=== PATIENT | female | born 2000 | race Caucasian/White ===

== ENCOUNTER 2021-01-31 12:19 | Observation (INO) ==
--- NOTE | 2021-01-31 12:46 | Emergency Department Note ---
Impression & Plan Pneumothorax ED Provider Note CHIEF COMPLAINT: Chest pain HISTORY OF PRESENTING ILLNESS: This is a 20-year-old female who presents to the emergency department by private vehicle with complaint of left-sided chest pain that has been constant for the past 2 days. She states she first started feeling pain in her left shoulder blade area after getting out of her car. She states she thought she pulled a muscle, but the pain has been persistently worsening. The pain is now primarily in the left front of her chest and wraps around the side into her shoulder blade area, has been constant discomfort that she describes like a tightness and states it feels like her lungs are "sliding around inside", she has a sharp stabbing pain with taking a deep breath and the pain is also worse when lying flat, also worse with twisting movements and exertion, better with sitting up and rest, she currently rates the pain 3/10. She has not tried anything for the pain. She denies any injuries. She notes feeling slightly short of breath when she is in pain, but she feels that is more due to feeling like it hurts to take a breath, not that she cannot get her breath. She denies any fevers or chills. She denies any cough or URI symptoms. She denies any concerns for COVID-19 and states she has not been around anybody for several weeks. REVIEW OF SYSTEMS: A complete 10 point review of systems was reviewed with the patient with pertinent positives and negatives as [facility] All else were negative. PAST MEDICAL HISTORY: Asthma SOCIAL HISTORY: Lives at home, she smokes marijuana and vapes daily ALLERGIES: No known allergies PHYSICAL EXAM: CONSTITUTIONAL: Pleasant and cooperative. Nontoxic-appearing and in no acute distress. Well appearing and well nourished. HEENT: Normocephalic, atraumatic. Pharynx normal. NECK: Supple, full active range of motion without discomfort. No JVD. RESPIRATORY: Clear to auscultation bilaterally with no wheezing, crackles, rhon chi or stridor. Equal expansion bilaterally. CARDIOVASCULAR: Regular rate and rhythm with no murmurs, rubs or gallops. Normal peripheral perfusion, 2+ distal pulses in all 4 extremities. No pitting edema. GASTROINTESTINAL: Soft, nontender, nondistended. No palpable masses or HSM. Bowel sounds present in all quadrants. MUSCULOSKELETAL: Full range of motion of all joints without discomfort. INTEGUMENTARY: No rash or other significant dermatologic conditions noted. NEUROLOGIC: Alert and oriented X 4 with normal affect. Normal strength and sensation in all 4 extremities. Normal speech. Normal gait observed. ED COURSE AND MEDICAL DECISION MAKING: CC: Patient presenting with complaint of chest pain DIFFERENTIAL DIAGNOSIS: Includes, but not limited to acute coronary syndrome, pulmonary embolism, aortic dissection, pneumothorax, pericarditis, myocarditis, anxiety, musculoskeletal pain, GERD, costochondritis, pneumonia, among others. INTERPRETATION OF LABS: No leukocytosis, no anemia, normal platelets, no significant electrolyte abnormalities, normal renal function, normal liver en zymes and lipase. Serum negative. Troponin undetectable. D-dimer normal. IMAGING: XR chest 1V portable CLINICAL HISTORY: Chest Pain COMPARISON STUDY: No previous studies for comparison. FINDINGS: Lung volumes are normal. There is a small pneumothorax with superior pleural separation of 2.5 cm. There is no right pneumothorax. Lungs are clear. Cardiac size is normal. Mediastinal contours are normal. IMPRESSION: Small left pneumothorax with superior pleural separation of 2.5 cm. Findings discussed with Irena Paulson at time of dictation. EKG: Shows normal sinus rhythm with a rate of 81 bpm, normal intervals, no ST or T wave abnormalities, no ectopy by my interpretation. No previous EKGs available for comparison. MEDICATION RECONCILIATION: I attest that I have personally reviewed the patient's current medication list. INITIAL VITAL SIGNS REVIEW: I reviewed the patient's initial vital signs and interpret them as follows: T: Afebrile; BP: Normotensive; HR: Mildly tachycardic; RR: Within normal limits; Pulse Ox: Within normal limits on room air. MDM SUMMARY: Patient was evaluated at bedside, history and physical exam performed. Patient is alert and oriented, in no acute distress, resting calmly in the stretcher. Breathing is nonlabored, she is not tachypneic or hypoxic. Lung sounds are clear, slightly diminished in the bases. Normal heart sounds. No edema. Cardiac monitoring: An order was placed for continuous cardiac monitoring. The monitor shows a rate of 93 bpm with normal sinus rhythm. Orders were placed at bedside for labs including troponin, D-dimer, serum , EKG, and chest x-ray to evaluate for chest pain. Patient discussed with Dr. Salguero, who agrees with my assessment, plan, and disposition. Labs and imaging reviewed as above, labs are fairly unremarkable. Troponin undetectable. D-dimer normal. Chest x-ray reviewed as above, notable for a small left pneumothorax. I spoke on the phone with Dr. Watson, laundry clerk, who agreed to be involved in the patient's care. He recommended placing the patient on nonrebreather oxygen and recommended that she be admitted to the hospitalist service for observation. He requested a repeat chest x-ray in 4 hours as well as tomorrow morning. I spoke on the phone with Dr. Duran, [facility] Hospitalist, who agrees to evaluate the patient for the admission. Patient reassessed multiple times throughout ED stay, she has remained hemodynamically stable and not hypoxic. The patient was updated on all results and plan for admission/observation, all questions were answered to the best of my ability and the patient was agreeable to the plan. The patient was stable at time of admission. The chart was completed utilizing [employer] Speech voice recognition software. G rammatical errors, random word insertions, pronoun errors, and incomplete sentences are an occasional consequence of this system due to software limitations, ambient noise, and hardware issues. Any formal questions or concerns about the content, text, or information contained within the body of this dictation should be directly addressed to the nurse practitioner for clarification. Past Med/Surg History Social History Smoking Status: Current every day smoker Tobacco Type: E-cigarettes / Vaping Preferred Language: Omani Feels Safe at Home: Yes Allergies Allergies Allergy/AdvReac Type Severity Reaction Status Date / Time No Known Allergies Allergy Verified 01/31/21 14:54 Home Meds Home Medications Medication Instructions Recorded Confirmed albuterol sulfate 2 puff INHALATION DIRECTED PRN 01/31/21 01/31/21 Results & Data (ED) Vital Signs Vital Signs - 24 hr 01/31/21 12:23 01/31/21 12:30 01/31/21 14:22 Temperature 36.5 C Temperature Source Temporal Artery Scan Pulse Rate 107 H Pulse Rate [Apical] 76 Respiratory Rate 16 20 Respiratory Effort / Characteristics Non-Labored Spontaneous Non-Labored Respiratory Depth Normal Blood Pressure 105/70 Blood Pressure [Right Arm] 103/65 Blood Pressure Mean 81 Blood Pressure Mean [Right Arm] 77 Blood Pressure Position Sitting Pulse Oximetry 99 100 Oxygen Delivery Method Room Air Non-rebreather Oxygen Flow Rate 6 Sepsis Recent Fever Within 48 Hours No Sepsis New/Unexplained Change in Mental Status No Sepsis Action Taken by Nursing No Action Required 01/31/21 15:00 01/31/21 16:00 01/31/21 17:00 Temperature Temperature Source Pulse Rate Pulse Rate [Apical] 78 79 88 Respiratory Rate 16 16 16 Respiratory Effort / Characteristics Respiratory Depth Blood Pressure Blood Pressure [Right Arm] 107/68 104/67 101/63 Blood Pressure Mean Blood Pressure Mean [Right Arm] 81 79 75 Blood Pressure Position Pulse Oximetry 100 100 99 Oxygen Delivery Method Non-rebreather Non-rebreather Room Air Oxygen Flow Rate 8 8 Sepsis Recent Fever Within 48 Hours Sepsis New/Unexplained Change in Mental Status Sepsis Action Taken by Nursing Laboratory Data Result diagrams: 01/31/21 12:56 01/31/21 12:56 Lab Results 01/31/21 01/31/21 01/31/21 Range/Units 12:56 12:56 12:56 WBC 7.00 (4.8-10.8) K/uL RBC 4.03 L (4.2-5.4) M/uL Hgb 13.7 (12.0-16.0) g/dL Hct 38.4 (37-47) % MCV 95.3 (80-100) fL MCH 34.0 (25-34) pg MCHC 35.7 (32-36) g/dL RDW Std Deviation 43.3 (36.4-46.3) fL RDW Coeff of Juan 12.4 (11.5-14.5) % Plt Count 186 (130-400) K/uL MPV 11.1 H (7.4-10.4) fL Immature Gran % (Auto) 0.0 % Neut % (Auto) 65.8 % Lymph % (Auto) 25.6 % Towns % (Auto) 5.6 % Eos % (Auto) 2.7 % Baso % (Auto) 0.3 % Neut # (Auto) 4.61 (1.4-6.5) K/uL Lymph # (Auto) 1.79 (1.2-3.4) K/uL Towns # (Auto) 0.39 (0.11-0.59) K/uL Eos # (Auto) 0.19 (0-0.5) K/uL Baso # (Auto) 0.02 (0-0.2) K/uL Immature Gran # (Auto) 0.00 (0.00-0.02) K/uL D-Dimer Cancelled Sodium (136-145) mmol/L Potassium (3.5-5.1) mmol/L Chloride (98-107) mmol/L Carbon Dioxide (21-32) mmol/L Anion Gap (3-11) BUN (7-18) mg/dl Creatinine (0.6-1.2) mg/dl Est Cr Clr Drug Dosing ml/min Est GFR ( Amer) Est GFR (Non-Af Amer) BUN/Creatinine Ratio (10-20) Glucose (70-99) mg/dl Calcium (8.5-10.1) mg/dl Total Bilirubin (0.2-1) mg/dl AST (15-37) U/L ALT (12-78) U/L Alkaline Phosphatase (45-117) U/L Troponin I (0-0.045) ng/ml Total Protein (6.4-8.2) gm/dl Albumin (3.4-5.0) gm/dl Globulin (2.5-4.0) gm/dl Albumin/Globulin Ratio (0.9-2) Lipase (73-393) U/L HCG, Qual Negative (Negative) Specimen Hemolysis COVID-19 Eval Order SARS-CoV-2, RNA, NAAT (NEGATIVE) 01/31/21 01/31/21 01/31/21 Range/Units 12:56 13:53 15:55 WBC (4.8-10.8) K/uL RBC (4.2-5.4) M/uL Hgb (12.0-16.0) g/dL Hct (37-47) % MCV (80-100) fL MCH (25-34) pg MCHC (32-36) g/dL RDW Std Deviation (36.4-46.3) fL RDW Coeff of Juan (11.5-14.5) % Plt Count (130-400) K/uL MPV (7.4-10.4) fL Immature Gran % (Auto) % Neut % (Auto) % Lymph % (Auto) % Towns % (Auto) % Eos % (Auto) % Baso % (Auto) % Neut # (Auto) (1.4-6.5) K/uL Lymph # (Auto) (1.2-3.4) K/uL Towns # (Auto) (0.11-0.59) K/uL Eos # (Auto) (0-0.5) K/uL Baso # (Auto) (0-0.2) K/uL Immature Gran # (Auto) (0.00-0.02) K/uL D-Dimer 380 Sodium 139 (136-145) mmol/L Potassium 3.8 (3.5-5.1) mmol/L Chloride 107 (98-107) mmol/L Carbon Dioxide 26 (21-32) mmol/L Anion Gap 6.0 (3-11) BUN 9 (7-18) mg/dl Creatinine 0.76 (0.6-1.2) mg/dl Est Cr Clr Drug Dosing 85.5 ml/min Est GFR ( Amer) 131.8 Est GFR (Non-Af Amer) 113.7 BUN/Creatinine Ratio 12.2 (10-20) Glucose 90 (70-99) mg/dl Calcium 9.3 (8.5-10.1) mg/dl Total Bilirubin 0.7 (0.2-1) mg/dl AST 16 (15-37) U/L ALT 23 (12-78) U/L Alkaline Phosphatase 55 (45-117) U/L Troponin I < 0.015 (0-0.045) ng/ml Total Protein 6.7 (6.4-8.2) gm/dl Albumin 3.7 (3.4-5.0) gm/dl Globulin 3.0 (2.5-4.0) gm/dl Albumin/Globulin Ratio 1.2 (0.9-2) Lipase 92 (73-393) U/L HCG, Qual (Negative) Specimen Hemolysis COVID-19 Eval [facility] SARS-CoV-2, RNA, NAAT (NEGATIVE) 01/31/21 Range/Units 15:55 WBC (4.8-10.8) K/uL RBC (4.2-5.4) M/uL Hgb (12.0-16.0) g/dL Hct (37-47) % MCV (80-100) fL MCH (25-34) pg MCHC (32-36) g/dL RDW Std Deviation (36.4-46.3) fL RDW Coeff of Juan (11.5-14.5) % Plt Count (130-400) K/uL MPV (7.4-10.4) fL Immature Gran % (Auto) % Neut % (Auto) % Lymph % (Auto) % Towns % (Auto) % Eos % (Auto) % Baso % (Auto) % Neut # (Auto) (1.4-6.5) K/uL Lymph # (Auto) (1.2-3.4) K/uL Towns # (Auto) (0.11-0.59) K/uL Eos # (Auto) (0-0.5) K/uL Baso # (Auto) (0-0.2) K/uL Immature Gran # (Auto) (0.00-0.02) K/uL D-Dimer Sodium (136-145) mmol/L Potassium (3.5-5.1) mmol/L Chloride (98-107) mmol/L Carbon Dioxide (21-32) mmol/L Anion Gap (3-11) BUN (7-18) mg/dl Creatinine (0.6-1.2) mg/dl Est Cr Clr Drug Dosing ml/min Est GFR ( Amer) Est GFR (Non-Af Amer) BUN/Creatinine Ratio (10-20) Glucose (70-99) mg/dl Calcium (8.5-10.1) mg/dl Total Bilirubin (0.2-1) mg/dl AST (15-37) U/L ALT (12-78) U/L Alkaline Phosphatase (45-117) U/L Troponin I (0-0.045) ng/ml Total Protein (6.4-8.2) gm/dl Albumin (3.4-5.0) gm/dl Globulin (2.5-4.0) gm/dl Albumin/Globulin Ratio (0.9-2) Lipase (73-393) U/L HCG, Qual (Negative) Specimen Hemolysis COVID-19 Eval Order SARS-CoV-2, RNA, NAAT NEGATIVE (NEGATIVE) Discharge Plan Visit Data Chief Complaint: Chest Pain Stated Complaint: SHARP PAIN - LT SIDE OF CHEST ED Provider: Manuel Salguero ED Midlevel Provider: Galuska,Irena B. Discharge Problem: Pneumothorax Patient Disposition: Admitted As Inpatient Condition: Good Discharge Instructions Interventions: ED Discharge Assessment Last Done: 01/31/21 17:05 Forms Stand Alone Forms: [employer] Prescriptions Prescriptions: No Action albuterol sulfate 90 mcg/actuation Hfa Aerosol Inhaler 2 puff INHALATION DIRECTED PRN (Reason: Shortness Of Breath Or Wheezing) RF: 0 Referrals [facility]: [facility] [Primary Care Provider[facility] - Discharge Problem: Pneumothorax Qualifiers: Pneumothorax type: spontaneous, primary Qualified Code(s): J93.11 - Primary spontaneous pneumothorax
[2021-01-31 13:14] LABS: Basophils # (auto) 0.02 K/uL (0-0.2); Basophils % (auto) 0.3 %; Eosinophils # (auto) 0.19 K/uL (0-0.5); Eosinophils % (auto) 2.7 %; Hematocrit (blood only) 38.4 % (37-47); Hemoglobin 13.7 g/dL (12.0-16.0); Lymphocytes # (auto) 1.79 K/uL (1.2-3.4); Lymphocytes % (auto) 25.6 %; Mean Corpuscular Hgb Conc 35.7 g/dL (32-36); Mean Corpuscular Volume 95.3 fL (80-100); Mean Platelet Volume 11.1 fL (7.4-10.4); Monocytes # (auto) 0.39 K/uL (0.11-0.59); Monocytes % (auto) 5.6 %; Neutrophils # (auto) 4.61 K/uL (1.4-6.5); Neutrophils % (auto) 65.8 %; Platelet Count 186 K/uL (130-400); RDW Coefficient of Variation 12.4 % (11.5-14.5); RDW Standard Deviation 43.3 fL (36.4-46.3); Red Blood Count 4.03 M/uL (4.2-5.4)
--- NOTE | 2021-01-31 13:18 | XRay Report ---
XR chest 1V portable CLINICAL HISTORY: Chest Pain COMPARISON STUDY: No previous studies for comparison. FINDINGS: Lung volumes are normal. There is a small pneumothorax with superior pleural separation of 2.5 cm. There is no right pneumothorax. Lungs are clear. Cardiac size is normal. Mediastinal contours are normal. IMPRESSION: Small left pneumothorax with superior pleural separation of 2.5 cm. Findings discussed w tigist Paulson at time of dictation. ACT 112: Negative or not required by law. Electronically signed by: Morris Balderas M.D. 01/31/2021 1:17 PM
[2021-01-31 13:35] LABS: Pregnancy Test, Serum Negative (Negative)
[2021-01-31 13:37] LABS: Alanine Aminotransferase 23 U/L (12-78); Albumin Level 3.7 gm/dl (3.4-5.0); Aspartate Aminotransferase 16 U/L (15-37); BUN Creatinine Ratio 12.2 (10-20); Blood Urea Nitrogen 9 mg/dl (7-18); Calcium 9.3 mg/dl (8.5-10.1); Carbon Dioxide 26 mmol/L (21-32); Chloride 107 mmol/L (98-107); Creatinine Clr Calc Pharmacy 85.5 ml/min; Est GFR (African American) 131.8; Est GFR (Non-African American) 113.7; Glucose 90 mg/dl (70-99); Lipase 92 U/L (73-393); Potassium 3.8 mmol/L (3.5-5.1); Sodium 139 mmol/L (136-145)
[2021-01-31 13:45] LABS: Albumin Globulin Ratio 1.2 (0.9-2); Alkaline Phosphatase 55 U/L (45-117); Bilirubin,Total 0.7 mg/dl (0.2-1); Total Protein 6.7 gm/dl (6.4-8.2); Troponin I < 0.015 ng/ml (0-0.045)
[2021-01-31 14:31] LABS: D Dimer 380 ug/L FEU (0-500)
--- NOTE | 2021-01-31 15:31 | History & Physical Report ---
Date of Service January 31, 2021 Assessment & Plan (1) Pneumothorax: Continue on non-rebreather @ 10 LPM CXR @ 6pm then in AM Consult pulmonology (2) Engages in vaping: Encouraged to discontinue use of this. Admission and Anticipated Discharge Date Admission Date: 01/31/2021 History of Present Illness Primary Care Provider: [facility] Cayla Villagomez is a 20-year-old female who presents to the ER with 2 days of left- sided chest pain. She reports sudden onset chest pain while driving after shivering with possible back muscle spasms. Severity 2/10, worse on deep inspiration, movement. She describes the feeling of a liquid sensation sloshing around when she bends over. No fevers or chills or recent URI symptoms. No history of COVID-19 pneumonia. She does note 3 years ago having a similar feeling but never had it checked out medically. On that occasion her pain resolved in a few days without intervention. She denies any extensive exercise regimen, anorexia or bulimia. She does admit to smoking marijuana and e-cigarettes for the last 3 years. She notes more persistent use of the cigarettes over the last 2 years. No family history of any lung disorders. She does have a personal history of asthma as a child but now rarely uses her albuterol inhaler and is on no maintenance inhalers. In the ER chest x-ray showed a small left pneumothorax with superior pleural separation of 2.5 cm. She was referred to medicine for admission and ongoing management of this. Allergies Allergy/AdvReac Type Severity Reaction Status Date / Time No Known Allergies Allergy Verified 01/31/21 14:54 Home Medications Medication Instructions Recorded Confirmed Type albuterol sulfate 2 puff INHALATION DIRECTED PRN 01/31/21 01/31/21 History Past Med/Surg History Medical History (Updated 02/01/21 @ 10:03 by Cruz Watson MD) Chest pain Engages in vaping Marijuana use, continuous Spontaneous pneumothorax Social History Smoking Status: Current every day smoker Tobacco Type: E-cigarettes / Vaping Do You Dip or Chew Tobacco: No; Hx Alcohol Use: No Hx Substance Use: Yes Last Used Substance: Days (ago) Last Used Substance Other:: last night Preferred Language: Salvadorean Communication Ability: Effective Beliefs That Will Affect Care: None Current Living Situation: Other Current Living Situation Comment: 2 roomates Feels Safe at Home: Yes Safety Concerns: Feels Safe At This Time Assistive Devices: None Review of Systems Review of Systems: All systems reviewed & are unremarkable except as noted in HPI & below Physical Exam Constitutional: WD/WN, vitals as above Eyes: PERRL, conjunctivae normal, anicteric sclerae ENMT: external ear and nose normal, oropharynx normal Respiratory: normal respiratory effort, lungs clear to auscultation (Good air entry to apex) Cardiovascular: RRR, no murmur, no edema Musculoskeletal: no cyanosis or clubbing, extremities motor strength 5/5 Skin: no rashes, warm and dry (No surgical emphysema) Neurologic: moves all extremities and awake; not confused Psychiatric: A+Ox3, euthymic affect Results & Data Results & Data ([facility]) Vital Signs (Past 12 Hours) Vital Signs Temp Pulse Pulse Resp BP BP Pulse Ox 01/31/21 14:22 76 20 103/65 100 01/31/21 12:23 36.5 C 107 H 16 105/70 99 Diagnostic Findings XR chest 1V portable IMPRESSION: Small left pneumothorax with superior pleural separation of 2.5 cm. Findings discussed with Irena Paulson at time of dictation. Medications Administered ER medications given: None Code Status & VTE Plan Code Status Full VTE Prophylaxis Plan VTE Prophylaxis will be ordered: No PG Care Time/CCT Total # of Minutes Spent Total Time Spent with Patient: Total time spent is greater than 50% in coordination of care (as documented) at patient's floor/unit and/or counseling patient: Coding Level of Care Code 89003 OBS Care - Level 2 Diagnoses Pneumothorax J93.11 Pneumothorax type: spontaneous, primary Engages in vaping Z72.89 (1) Pneumothorax Pneumothorax type: spontaneous, primary Qualified Code(s): J93.11 - Primary spontaneous pneumothorax
[2021-01-31] MEDS ORDERED: POLYETHYLENE (MIRALAX) 17 GM PACK PO PRN (17:36)
[2021-01-31] MEDS ORDERED: ONDANSETRON INJ 2 MG/ML 2 ML VIAL IV PRN (17:36)
[2021-01-31] MEDS ORDERED: ACETAMINOPHEN 325 MG TAB PO PRN (17:36)
--- NOTE | 2021-01-31 18:12 | XRay Report ---
XR chest 1V portable CLINICAL HISTORY: Left pneumothorax COMPARISON STUDY: Chest radiograph January 31, 2021 at 12:58 PM. FINDINGS: There has been slight decrease in size of a small left apical pneumothorax. Superior pleura l separation measures 1.8 cm. It measured 2.5 cm on chest radiograph performed earlier today. There i s no right pneumothorax. Lungs are clear. Cardiac size is normal. Mediastinal contours are normal. Th ere is no consolidation. IMPRESSION: Slight decrease in size of a small left apical pneumothorax. ACT 112: Negative or not required by law. Electronically signed by: Morris Balderas M.D. 01/31/2021 6:11 PM
--- NOTE | 2021-02-01 06:27 | Electrocardiogram Report ---
Test Reason : Blood Pressure : / mmHG Vent. Rate : 081 BPM Atrial Rate : 081 BPM P-R Int : 140 ms QRS Dur : 080 ms QT Int : 360 ms P-R-T Axes : 060 068 078 degrees QTc Int : 418 ms Normal sinus rhythm with sinus arrhythmia Normal ECG No previous ECGs available Confirmed by Andrey Griggs ([id number]) on 02/01/2021 6:26:57 AM Referred By: ER Confirmed By:Andrey Griggs
--- NOTE | 2021-02-01 08:05 | XRay Report ---
XR chest 1V portable HISTORY: Follow-up Left pneumothorax COMPARISON: Chest 01/31/2021. FINDINGS: Slight increase in size in the small left apical pneumothorax which demonstrates a maximal pleural gap of 2 cm. This previously measured 1.8 cm. The lungs are clear. The heart is normal in siz e. No pleural effusions. IMPRESSION: Slight increase in size in the small left apical pneumothorax. ACT 112: Negative or not required by law. Electronically signed by: Sushant Traylor M.D. 02/01/2021 8:04 AM
--- NOTE | 2021-02-01 10:01 | Pulmonary Consultation ---
Date of Consultation February 01, 2021 Assessment & Plan (1) Spontaneous pneumothorax: 20-year-old female with a past history of marijuana use and vaping presented to the hospital due to a spontaneous left-sided pneumothorax. Spontaneous pneumothorax: We will follow up with her in the clinic in 1 week. No intervention required at this time as she is hemodynamically stable. She is also stable from a respiratory standpoint. Recommend discharge today. Advised her to avoid lifting anything over 5 pounds for the next 2 weeks. Avoid air travel and scuba diving until follow-up imaging and further direction. Notably, she was concerned that 3 years ago she may have had a pneumothorax and was unaware as she did not go to the doctor. If the pneumothorax resolves in 1 week, will obtain a chest CT to evaluate for blebs or emphysema. If these are seen, would recommend thoracic surgery referral as an outpatient. Vaping and marijuana use: Advised strict cessation of these activities as they could potentially lead to further pneumothorax and lung disease. Thank you for the consultation. Please call with questions. (2) Chest pain: Chest pain type: chest pain on breathing Qualified Code(s): R07.1 - Chest pain on breathing (3) Marijuana use, continuous: (4) Engages in vaping: History of Present Illness Reason for Consultation: Spontaneous pneumothorax Attending Physician: Micah Paul MD History of Present Illness 20-year-old female with no significant past medical history who presented to the ER yesterday afternoon for left-sided chest pain that has been occurring for the last 2 days. She notes that she has pain on deep inspiration. There is a tightness in her chest and she feels like something is sliding around. She denies any significant shortness of breath at this time. She feels that her tightness in chest pain has improved. She notes that she had somewhat of a similar pain approximately 3 years ago and was wondering if she had a pneumothorax at that time. She denies ever going to the ER or the doctor to evaluate the chest pain at that time. It had spontaneously improved. At this time, she denies any trauma to her chest. She does note that she smokes marijuana almost on a daily basis and is also vaping on a daily basis throughout the day. She notes that she started vaping roughly 3 years ago. She has been vaping nicotine substance. She denies any cigarette use at this time. She denies any recent airplane travel or scuba diving. No recent weight lifting. She has been fairly sedentary during this COVID-19 pandemic. She is currently in school at [employer]. She normally lives in [place]. During this hospitalization she has had 3 x-rays. X-ray on 01/31 at 1:17 PM demonstrated a small left apical pneumo measuring 2.5 cm. Subsequent x-ray on demonstrated slight decrease in size of the apical pneumo measuring 1.8 cm. Chest x-ray this morning demonstrates an apical pneumo measuring roughly 2 cm. Allergies Allergy/AdvReac Type Severity Reaction Status Date / Time No Known Allergies Allergy Verified 01/31/21 14:54 Home Medications Medication Instructions Recorded Confirmed Type albuterol sulfate 2 puff INHALATION DIRECTED PRN 01/31/21 01/31/21 History Patient History Medical History (Updated 02/01/21 @ 10:03 by Cruz Watson MD) Chest pain Engages in vaping Marijuana use, continuous Spontaneous pneumothorax Social History Smoking Status: Current every day smoker Tobacco Type: E-cigarettes / Vaping Do You Dip or Chew Tobacco: No; Hx Alcohol Use: No Hx Substance Use: Yes Last Used Substance: Days (ago) Last Used Substance Other:: last night Preferred Language: Guyanese Communication Ability: Effective Beliefs That Will Affect Care: None Current Living Situation: Other Current Living Situation Comment: 2 roomates Feels Safe at Home: Yes Safety Concerns: Feels Safe At This Time Assistive Devices: Oxygen - Continuous Review of Systems Review of Systems: All systems reviewed & are unremarkable except as noted in HPI & below Physical Exam Constitutional: WD/WN, vitals as above + thin Eyes: PERRL, conjunctivae normal, anicteric sclerae ENMT: external ear and nose normal, oropharynx normal Neck: trachea midline, no thyromegaly Respiratory: normal respiratory effort, lungs clear to auscultation Cardiovascular: RRR, no murmur, no edema Gastrointestinal (Abdomen): normal bowel sounds, soft, nontender, no hepatosplenomegaly Musculoskeletal: no cyanosis or clubbing, extremities motor strength 5/5 Skin: no rashes, warm and dry Neurologic: PERRL, EOMI, accommodation nl, no face palsy, no dysarthria Psychiatric: A+Ox3, euthymic affect Results & Data Results & Data ([facility]) Vital Signs (Past 12 Hours) Vital Signs Temp Pulse Resp BP Pulse Ox 02/01/21 07:03 98.1 F 64 16 100/62 100 01/31/21 22:12 98.4 F 66 16 117/74 98 I reviewed her vital signs, labs and chest imaging. PG Care Time/CCT Total # of Minutes Spent Total Time Spent with Patient: Total time spent is greater than 50% in coordination of care (as documented) at patient's floor/unit and/or counseling patient: Coding Level of Care Code 35046 Inpt Consult Level 5 Diagnoses Spontaneous pneumothorax J93.83 Chest pain R07.1 Chest pain type: chest pain on breathing Marijuana use, continuous F12.90 Engages in vaping Z72.89
--- NOTE | 2021-02-01 12:12 | Discharge Summary ---
Date of Service February 01, 2021 Admission HPI Per Admitting Provider Cayla Villagomez is a 20-year-old female who presents to the ER with 2 days of left- sided chest pain. She reports sudden onset chest pain while driving after shivering with possible back muscle spasms. Severity 2/10, worse on deep inspiration, movement. She describes the feeling of a liquid sensation sloshing around when she bends over. No fevers or chills or recent URI symptoms. No history of COVID-19 pneumonia. She does note 3 years ago having a similar feeling but never had it checked out medically. On that occasion her pain resolved in a few days without intervention. She denies any extensive exercise regimen, anorexia or bulimia. She does admit to smoking marijuana and e-cigarettes for the last 3 years. She notes more persistent use of the cigarettes over the last 2 years. No family history of any lung disorders. She does have a personal history of asthma as a child but now rarely uses her albuterol inhaler and is on no maintenance inhalers. In the ER chest x-ray showed a small left pneumothorax with superior pleural separation of 2.5 cm. She was referred to medicine for admission and ongoing management of this. Principal Diagnosis Spontaneous left apical pneumothorax Discharge Data Allergies Allergy/AdvReac Type Severity Reaction Status Date / Time No Known Allergies Allergy Verified 01/31/21 14:54 Consultations 01/31/21 14:50 ED Decision to Admit Stat 01/31/21 17:36 Consult Pulmonology Routine Hospital Course (1) Pneumothorax: Serial chest x-rays reveal stable left apical pneumothorax which is small. No respiratory distress. Case discussed with pulmonary medicine. She will be discharged home today and follow-up with him in 1 week. She was instructed to avoid any airline flights, scuba diving, exertion, heavy weightlifting. Pulmonary medicine consultation appreciated (2) Engages in vaping: Encouraged to discontinue use of this. Disposition: Home todayFebruary 01 Total Time Total Time Spent Total Time Spent (In Minutes): 35 minutes Total Time Includes: Examination of the Patient, Discharge Planning, Medication Reconciliation and Communication With Other Providers Discharge Plan Discharge Items Reason For Visit: LEFT PNEUMOTHORAX Condition on Discharge: Good Medications and DC Order Prescriptions: No Action albuterol sulfate 90 mcg/actuation Hfa Aerosol Inhaler 2 puff INHALATION DIRECTED PRN (Reason: Shortness Of Breath Or Wheezing) RF: 0 Admission Data Admit Date/Time: 01/31/21 15:30 Attending Provider: Micah Paul Admit Provider: Jeffery Duran Primary Care Provider: [facility] Other Providers: Jeffery Duran ; Cruz Watson Coding Level of Care Code D/C Day Management >30 mins Diagnoses Pneumothorax J93.11 Pneumothorax type: spontaneous, primary Engages in vaping Z72.89
== END 2021-02-01 14:35 | disposition home or self-care (01) ==
LOC: 3N 12:19 → ED 12:19 → SUATTDRO 15:30 → 3N 17:05